=== PATIENT | female | born 1980 | race Caucasian/White ===

== ENCOUNTER 2018-09-28 12:35 | Emergency (ER) | payer OTHER ==
[~2018-09-28] VITALS: Ht 162.6 cm; Wt 84.8 kg
[~2018-09-28 12:35] MED LIST: ZOCOR20 MG
== END 2018-09-28 14:56 | disposition home or self-care (01) ==
LOC: ER 12:35
DX: N93.8 Other specified abnormal uterine and vaginal bleeding (principal)